=== PATIENT | female | born 1950 | race Caucasian/White ===

== ENCOUNTER 2017-01-04 11:22 | Emergency (ER) | payer OTHER ==
[~2017-01-04] VITALS: Ht 159.4 cm; Wt 63.2 kg
[2017-01-04 11:33] VITALS: BP 165/96; PULSE 81; RESP 16; O2SAT 100
--- NOTE | 2017-01-04 12:12 | ED.REPORT ---
HPI-Ear Pain/Problem/FB Date of Service Jan 04, 2017 ED Provider: Louis Carlson PAC History of Present Illness: 66yo female with 3 days of marked dizziness, worse with movement. She felt prssure in L ear, then felt/heard a "pop" in L ear and scant fluid drained. Marked n/v associated with dizziness, "I can't keep anything down." No fever, hearing loss, vision change, CP, SOB. Saw PCP yesterday, treated with Zofran, minimal improvement. Nursing Notes Stated Complaint: LEFT EAR PAIN/DEHYDRATION/DIZZINESS Chief Complaint: General Complaint Nursing Notes Reviewed: Yes Allergies: Coded Allergies: Penicillins (Verified Allergy, Mild, RASH, 01/04/17) Sulfa (Sulfonamide Antibiotics) (Verified Adverse Reaction, Severe, VOMITING, 01/04/17) General Time Seen by MD: 12:10 Chief Complaint Ear problem left, Discharge Hx Obtained From: Patient Arrived By: Walk-in Onset Occurred: 3 days ago Symptom Duration: Since onset Severity: Current: No pain currently Severity: Maximum: Moderate Recent Healthcare: Recent doctor visit Similar Sx Previous: No Past Medical History Past Medical History Reports: Hypertension, Denies: Stroke, Transient ischemic attack Smoking History Unknown if Ever Smoker Social History Alcohol Use: Denies alcohol use Ambulatory Status Independent Review of Systems Basic Review of Systems Respiratory: No shortness of breath Cardiovascular: No chest pain GI: No abdominal pain Neurologic: NL mental status, No weakness, No numbness Ears / Nose / Throat: Reports: Ear drainage left Additional Review of Systems Cardiovascular: Denies: Chest pain GI: Reports: Nausea, Vomiting, Denies: Abdominal pain Neurologic: Reports: Dizziness, Headache, Denies: Change LOC, Focal weakness, Numbness, Seizure, Slurred speech, Syncope, Vision change Physical Exam Initial Vital Signs Vital Signs (First) Date Time Temp Pulse Resp B/P Pulse Ox O2 Delivery O2 Flow Rate FiO2 01/04/17 11:33 36.0 81 16 165/96 100 Room Air Initial VS: Reviewed General/Constitutional: Awake, Alert, No acute distress, Not toxic appearing ENT: Airway patent, Pharynx NL, Tympanic membs NL, Mastoid area NL Neck: Supple, Full range of motion, No adenopathy Respiratory / Chest: Atraumatic, Breath sounds NL, Breath sounds = bilat, No respiratory distress Cardiovascular: Heart rate NL, Regular rhythm, Heart sounds NL Neurologic: Oriented X3, Speech NL, No motor deficits, No sensory deficits, CN II - XII intact, Reflexes equal bilat, Cerebellar NL, Gait NL Upper and lower extremity strength 5/5 Interpretation & Diagnostics Interpretation & Diagnostics: PROCEDURE: CT BRAIN WITHOUT CONTRAST ([id number]) INDICATIONS: dizziness TECHNIQUE: Noncontrast 4.5 mm thick angled axial sections acquired from the foramen magnum to the vertex, with coronal reformats. COMPARISON: None. FINDINGS: Image quality: Excellent. CSF spaces: Basal cisterns are patent. No extra-axial fluid collections. The ventricles are symmetric in size and shape. There is mild cerebral volume loss, with resultant ventricular and sulcal prominence. Brain: There is an extra-axial mass within the left posterior fossa measuring up to 2.5 x 2.3 cm with dense calcification. There is associated mass effect on the left cerebellar hemisphere. The foramen magnum appears preserved without definite inferior herniation. No intracranial hemorrhage or midline shift. There are subcortical, periventricular and deep white matter hypodensities consistent with mild chronic small vessel ischemic changes. There is intracranial internal carotid artery atherosclerosis. Skull and face: Calvarium and visualized facial bones are intact, without suspicious lesions. Sinuses: Visualized sinuses and mastoids are clear. IMPRESSION: 1. Calcified extra-axial mass within the left posterior fossa measuring up to 2.5 cm likely represents a meningioma. There is associated mass effect on the left cerebral hemisphere. Further evaluation may be obtained with MRI if clinically indicated. Dictated by: Chance Jimenez M.D. on 01/04/2017 at 12:55 Approved by: Chance Jimenez M.D. on 01/04/2017 at 12:58 PROCEDURE: MRI BRAIN WITH AND WITHOUT CONTRAST ([id number]) INDICATIONS: symptomatic L posterior fossa mass TECHNIQUE: Noncontrast axial T1 spin echo, axial T2 fast spin echo, sagittal and axial FLAIR, coronal T2 fast spin echo, axial gradient echo, axial diffusion and ADC through the brain. After the administration of contrast, axial and coronal T1 spin echo with fat saturation through the brain. COMPARISON: [facility], CT, CT BRAIN WO CON, 01/04/2017, 12:42. FINDINGS: Image quality: Partially degraded by motion artifact. CSF spaces: Basal cisterns are patent. No extra-axial fluid collections. Ventricles are normal in size and shape. Brain: No midline shift. No intracranial bleeds. As seen by CT, there is an extra-axial, dural based mass within the left lateral posterior fossa, measuring 30 mm transverse by 25 mm craniocaudal by 22 mm anteroposterior. There is mild ill-defined FLAIR signal elevation within the surrounding left cerebellar hemisphere. There is cerebral volume loss for age. There is periventricular white matter chronic small vessel ischemic change. The brainstem appears normal. Diffusion-weighted images demonstrate no acute ischemic insults. No chronic ischemic insults. Normal intravascular flow voids are present. Skull and face: Calvarial marrow is normal in signal. Orbits appear normal. Sinuses: Sinuses and mastoids appear clear. IMPRESSION: 1. Left posterior fossa meningioma. 2. No acute process. Dictated by: Gabrielle Coleman M.D. on 01/04/2017 at 14:46 Approved by: Gabrielle Coleman M.D. on 01/04/2017 at 14:49 Lab Results Interpretation Result Diagram: 01/04/17 1220 01/04/17 1220 Test 01/04/17 12:20 01/04/17 13:59 01/04/17 14:10 White Blood Count 12.6th/mm3 (3.8-10.1) Red Blood Count 5.27mil/mm3 (3.90-5.20) Hemoglobin 14.5g/dL (12.0-15.6) Hematocrit 41.9% (35.0-46.0) Mean Corpuscular Volume 79.5fL (81-100) Mean Corpuscular Hemoglobin 27.5pg (27.0-35.0) Mean Corpuscular Hemoglobin Concent 34.6% (32.0-37.0) Red Cell Distribution Width 13.9% (12.3-15.4) Platelet Count 322bil/L (150-400) Neutrophils (%) (Auto) 82.5% (40-74) Lymphocytes (%) (Auto) 10.3% (14-46) Monocytes (%) (Auto) 5.5% (4-12) Eosinophils (%) (Auto) 1.3% (0-5) Basophils (%) (Auto) 0.2% (0-3) Sodium Level 140mEq/L (134-144) Potassium Level 3.1mEq/L (3.5-5.2) Chloride Level 94mEq/L (97-108) Carbon Dioxide Level 25mmol/L (18-29) Blood Urea Nitrogen 21mg/dL (8-27) Creatinine 0.69mg/dL (0.57-1.00) Estimat Glomerular Filtration Rate 123mL/min (>59) Glucose Level 141mg/dL (60-99) Calcium Level 10.3mg/dL (8.5-10.1) Total Bilirubin 0.4mg/dL (0.0-1.2) Aspartate Amino Transf (AST/SGOT) 22U/L (0-50) Alanine Aminotransferase (ALT/SGPT) 18U/L (0-32) Alkaline Phosphatase 76U/L (25-165) Total Protein 7.8g/dL (6.4-8.4) Albumin 4.7g/dL (3.4-5.0) Prothrombin Time 10.0sec (8.1-12.5) Prothromb Time International Ratio 0.94ratio Activated Partial Thromboplast Time 26.1sec (22.8-33.0) Hold Urine Received (Received) Re-Eval/Medical Decision Med Decision/Clinical Course Pt. evaluated by Dr. Grissom who advised brain CT. Results showed a menigianoma that appeared to be compressing L cerebellum, MRI subsequently obtained along with [facility] consult. [facility] advised [facility] consult. [facility] accepted Pt, transporting via BLS. Attending note: I saw and evaluated this patient. She is a minor right facial droop while talking and otherwise is grossly neurologically intact. She is able to ambulate. Her symptoms were concerning for intracranial lesion. Head CT shows a meningioma. MRI is performed which shows some amount of mass effect on the cerebellum. After fluids and meclizine she is feeling better and is ambulatory independently. We will secure either transfer to a neurosurgical facility or close outpatient follow-up. Consultation #1: Note: Dr. ANN, neurosurgeon at [facility] in [place]. Reviewed the MRI. Does not see hydrocephalus. Does not necessarily think the patient needs emergent transfer. Strongly recommends consultation with Dr. frida luther at [facility], Consultation #2: Call Returned at: 18:08 Note: Dr Urbina, neurosurgery at [facility] accepts patient Counseled Regarding: Diagnosis, Lab results, Need for transfer Discharge & Departure Primary Impression: Brain mass Additional Impression: Dizziness Disposition: Transfer, Acute Care Facility Receiving Hospital: [facility], Dr Urbina Transfer Accepted: Yes Transfer Reason: Higher level of care Spoke with: Attending physician Patient Status: Stable for transfer Referrals: Nikita Bocanegra DO (PCP) Crit Care Except Billable Proc Time Spent: 30-74 minutes Services Performed: Patient management by me, Time spent at bedside, Reviewing test results Critical Care Notes: See MDM EDSupervising Provider for APC: Bernard Grissom DO Attending Statement I have seen and examined the patient. I have reviewed the chart and agree with the documentation as recorded by the Midlevel Provider, including assessment, treatment plan, and disposition. Findings from my exam are included in documentation above. Louis Carlson PAC Jan 04, 2017 12:12 Bernard Grissom DO Jan 04, 2017 15:29
[2017-01-04] MEDS ORDERED: Ondansetron 2 mg/mL 2 mL Inj IVPUSH ONE (12:25)
[2017-01-04] MEDS ORDERED: 0.9% Sodium Chloride 1,000 ML IV SCH ×2 (12:25→13:35)
[2017-01-04 12:35] LABS: BASOPHILS % (AUTO) 0.2 % (0-3); EOSINOPHILS % (AUTO) 1.3 % (0-5); MONOCYTES % (AUTO) 5.5 % (4-12); Mean Corpuscular Hemoglobin 27.5 pg (27.0-35.0); Mean Corpuscular Volume 79.5 fL (81-100); NEUTROPHILS % (AUTO) 82.5 % (40-74); Platelet Count 322 bil/L (150-400)
--- NOTE | 2017-01-04 13:00 | DRSVH ---
PROCEDURE: CT BRAIN WITHOUT CONTRAST ([id number]) INDICATIONS: dizziness TECHNIQUE: Noncontrast 4.5 mm thick angled axial sections acquired from the foramen magnum to the vertex, with c oronal reformats. COMPARISON: None. FINDINGS: Image quality: Excellent. CSF spaces: Basal cisterns are patent. No extra-axial fluid collections. The ventricles are symmet albaro in size and shape. There is mild cerebral volume loss, with resultant ventricular and sulcal pro minence. Brain: There is an extra-axial mass within the left posterior fossa measuring up to 2.5 x 2.3 cm wit h dense calcification. There is associated mass effect on the left cerebellar hemisphere. The lucas en magnum appears preserved without definite inferior herniation. No intracranial hemorrhage or midl ine shift. There are subcortical, periventricular and deep white matter hypodensities consistent wit h mild chronic small vessel ischemic changes. There is intracranial internal carotid artery atherosc lerosis. Skull and face: Calvarium and visualized facial bones are intact, without suspicious lesions. Sinuses: Visualized sinuses and mastoids are clear. IMPRESSION: 1. Calcified extra-axial mass within the left posterior fossa measuring up to 2.5 cm likely represen ts a meningioma. There is associated mass effect on the left cerebral hemisphere. Further evaluatio n may be obtained with MRI if clinically indicated. Dictated by: Chance Jimenez M.D. on 01/04/2017 at 12:55 Approved by: Chance Jimenez M.D. on 01/04/2017 at 12:58
[2017-01-04 13:25] VITALS: BP 192/101; PULSE 83; RESP 17; O2SAT 100
[2017-01-04 14:23] LABS: INR 0.94 ratio
--- NOTE | 2017-01-04 14:51 | DRSVH ---
PROCEDURE: MRI BRAIN WITH AND WITHOUT CONTRAST ([id number]) INDICATIONS: symptomatic L posterior fossa mass TECHNIQUE: Noncontrast axial T1 spin echo, axial T2 fast spin echo, sagittal and axial FLAIR, coronal T2 fast sp in echo, axial gradient echo, axial diffusion and ADC through the brain. After the administration of contrast, axial and coronal T1 spin echo with fat saturation through the brain. COMPARISON: [facility], CT, CT BRAIN WO CON, 01/04/2017, 12:42. FINDINGS: Image quality: Partially degraded by motion artifact. CSF spaces: Basal cisterns are patent. No extra-axial fluid collections. Ventricles are normal in size and shape. Brain: No midline shift. No intracranial bleeds. As seen by CT, there is an extra-axial, dural base d mass within the left lateral posterior fossa, measuring 30 mm transverse by 25 mm craniocaudal by 2 2 mm anteroposterior. There is mild ill-defined FLAIR signal elevation within the surrounding left ce rebellar hemisphere. There is cerebral volume loss for age. There is periventricular white matter ch ronic small vessel ischemic change. The brainstem appears normal. Diffusion-weighted images demonst rate no acute ischemic insults. No chronic ischemic insults. Normal intravascular flow voids are pr esent. Skull and face: Calvarial marrow is normal in signal. Orbits appear normal. Sinuses: Sinuses and mastoids appear clear. IMPRESSION: 1. Left posterior fossa meningioma. 2. No acute process. Dictated by: Gabrielle Coleman M.D. on 01/04/2017 at 14:46 Approved by: Gabrielle Coleman M.D. on 01/04/2017 at 14:49
[2017-01-04 15:15] VITALS: BP 197/98; PULSE 88; RESP 17; O2SAT 100
[2017-01-04 16:41] VITALS: BP 187/88; PULSE 94; RESP 17; O2SAT 100
[2017-01-04] MEDS ORDERED: Ondansetron 2 mg/mL 2 mL Inj IVPUSH PRN (18:30)
[2017-01-04 18:41] VITALS: BP 135/66; PULSE 78; RESP 17; O2SAT 95
[2017-01-04 19:34] VITALS: BP 132/60; PULSE 71; RESP 17; O2SAT 98
== END 2017-01-04 19:35 | disposition short-term general hospital (02) ==
LOC: SED 11:22
DX: D32.9 Benign neoplasm of meninges, unspecified (principal); I10 Essential (primary) hypertension; Z88.0 Allergy status to penicillin; Z88.2 Allergy status to sulfonamides
CPT/HCPCS: 36415; 70450; 70553; 80053; 85025; 85610; 85730; 93005; 96361; 96374; 96375; 96376; 99291; A9585; J2060; J2405; J7030